=== PATIENT | male | born 1955 | race African-American/Black ===

== ENCOUNTER 2024-05-01 12:02 | Emergency (ER) | payer MEDICARE ==
[~2024-05-01] VITALS: Ht 190.5 cm; Wt 110.0 kg
[2024-05-01 12:11] VITALS: O2SAT 97
[2024-05-01] MEDS: ACETAMINOPHEN 325MG TABLET PO NR (12:35)
[2024-05-01] MEDS: CYCLOBENZAPRINE 10MG TABLET PO ONE (16:06)
[2024-05-01] MEDS: AMLODIPINE 10MG TABLET PO ONE (16:06)
[2024-05-01 17:04] VITALS: BP 192/106; PULSE 60; RESP 18; TEMP 36.66960; O2SAT 98
== END 2024-05-01 17:11 | disposition home or self-care (01) ==
LOC: ER 12:02
DX: I10 Essential (primary) hypertension (principal); M25.512 Pain in left shoulder; J44.9 Chronic obstructive pulmonary disease, unspecified; Z91.148 Patient's other noncompliance with medication regimen for other reason
CPT/HCPCS: 73030; 99283; A4565